=== PATIENT | female | born 1995 | race African-American/Black ===

== ENCOUNTER 2017-07-04 18:04 | Emergency (ER) | payer SELFPAY ==
[~2017-07-04] VITALS: Ht 162.6 cm; Wt 47.2 kg
[~2017-07-04 18:04] MED LIST: PREN-96 PO
[2017-07-04 19:41] VITALS: BP 108/68
[2017-07-04] MEDS ORDERED: methylPREDNISolone SOD SUCC 125 MG/2 ML VL IM ONE (20:15)
== END 2017-07-04 20:19 | disposition home or self-care (01) ==
LOC: ER 18:09
DX: T78.40XA Allergy, unspecified, initial encounter (principal)
CPT/HCPCS: 96372; 99283; J2930